=== PATIENT | female | born 1975 | race American Indian/Alaskan Native ===

== ENCOUNTER 2019-11-07 14:09 | Emergency (ER) | payer SELFPAY ==
[2019-11-07 14:29] VITALS: BP 148/85
== END 2019-11-07 18:21 | disposition home or self-care (01) ==
LOC: ED 14:09
DX: S82.432A Displaced oblique fracture of shaft of left fibula, initial encounter for closed fracture (principal); Z79.899 Other long term (current) drug therapy; W01.0XXA Fall on same level from slipping, tripping and stumbling without subsequent striking against object, initial encounter; Y93.89 Activity, other specified; Y92.89 Other specified places as the place of occurrence of the external cause; Y99.8 Other external cause status